=== PATIENT | male | born 1965 | race Two or more races ===

== ENCOUNTER 2025-04-25 18:23 | Emergency (ER) | payer BC, OTHER ==
[~2025-04-25] VITALS: Ht 185.4 cm; Wt 85.3 kg
[2025-04-25 18:28] VITALS: TEMP 98
--- NOTE | 2025-04-25 18:57 | ED.PDOC ---
HPI Comments 60 year old male presents to the ED with a chief complaint of chest pain onset today about 1 hour prior to ED arrival. Patient states he began experiencing chest pain about 1 hour ago, described as LT sided, tightness sensation as well as dizziness, cold hands. Patient checked BP was 200s systolic, came to ED. Denies shortness of breath, fever, chills, cough, congestion, headache, numbness/tingling, weakness, blurred vision. No other symptoms or modifying factors present at this time. Chief Complaint: Chest Pain Time Seen by MD: 18:40 Reviewed Notes: Medications, Allergies Allergies: Coded Allergies: NO KNOWN ALLERGIES (Unverified , 04/25/25) Home Meds Active Scripts Amlodipine Besylate (Amlodipine Besylate) 5 Mg Tab, 1 TAB PO DAILY for 90 Days, #90 TAB 3 Refills Prov:RAUL COLLIER MD 04/25/25 Amlodipine Besylate (Amlodipine Besylate) 5 Mg Tab, 1 TAB PO DAILY for 90 Days, #90 TAB 3 Refills Prov:RAUL COLLIER MD 04/25/25 Information Source: Patient Mode of Arrival: Ambulatory Severity: Moderate Timing: Hours Duration: Since onset Prehospital treatment: None Location: Chest (L) Radiation: No Radiation Quality: Tightness Onset: At Rest Cardiac Risk Factors: None PE Risk Factors: None History of: None Modifying Factors: Nothing Past Medical History PAST MEDICAL HISTORY: Denies Surgical History: Denies all surgeries Family History Family History: Reviewed,noncontributory to illness, No family hx of Cancer, No family hx of DM, No family hx of Heart garcía, No family hx of HTN, No family hx ofKidney garcía, No family hx of Liver garcía, No family hx of Lung garcía, No family hx of Stroke Social History Smoker: Non-Smoker Alcohol: Denies ETOH Use Drugs: Denies Drug Use Lives In: Home Constitutional: denies: chills, diaphoresis, fatigue, fever, malaise, sweats, weakness, others EENTM: denies: blurred vision, double vision, ear bleeding, ear discharge, ear drainage, ear pain, ear ringing, eye pain, eye redness, hearing loss, mouth pain, mouth swelling, nasal discharge, nose bleeding, nose congestion, nose pain, photophobia, tearing, throat pain, throat swelling, voice changes, others Respiratory: denies: cough, hemoptysis, orthopnea, SOB at rest, shortness of breath, SOB with excertion, stridor, wheezing, others Cardiovascular: reports: chest pain; denies: dizzy spells, diaphoresis, Dyspnea on exertion, edema, irregular heart beat, left arm pain, lightheadedness, palpitations, PND, syncope, others Gastrointestinal: denies: abdomen distended, abdominal pain, blood streaked bowels, constipated, diarrhea, dysphagia, difficulty swallowing, hematemesis, melena, nausea, poor appetite, poor fluid intake, rectal bleeding, rectal pain, vomiting, others Genitourinary: denies: burning, dysuria, flank pain, frequency, hematuria, incontinence, penile discharge, penile sore, pain, testicle pain, testicle swelling, urgency, others Neurological: reports: dizziness; denies: fainting, headache, left sided numbness, left sided weakness, numbness, paresthesia, pre-existing deficit, right sided numbness, right sided weakness, seizure, speech problems, tingling, tremors, weakness, others Musculoskeletal: denies: back pain, gout, joint pain, joint swelling, muscle pain, muscle stiffness, neck pain, others Integumetry: denies: bruises, change in color, change in hair/nails, dryness, laceration, lesions, lumps, rash, wounds, others Allergic/Immunocompromised: denies: Difficulty Healing, Frequent Infections, Hives, Itching, others Hematologic/Lymphatic: denies: anemia, blood clots, easy bleeding, easy bruising, swollen glands, others Endocrine: denies: excessive hunger, excessive sweating, excessive thirst, excessive urination, flushing, intolerance to cold, intolerance to heat, unexplained weight gain, unexplained weight loss, others Psychiatric: denies: anxiety, bipolar disorder, depression, hopeless, panic disorder, schizophrenia, sleepless, suicidal, others All Other Systems: Reviewed and Negative Physical Exam General Appearance: Normal HEENT: Normal ENT Inspection, Pharynx Normal, TMs Normal Neck: Full Range of Motion, Non-Tender, Normal, Normal Inspection Respiratory: Chest Non-Tender, Lungs Clear, No Accessory Muscle Use, No Respiratory Distress, Normal Breath Sounds Cardiovascular: No Edema, No JVD, No Murmur, No Gallop, Normal Peripheral Pulses, Regular Rate/Rhythm Breast Exam: Deferred Gastrointestinal: No Organomegaly, Non Tender, No Pulsatile Mass, Normal Bowel Sounds, Soft Genitalia: Deferred Pelvic: Deferred Rectal: Deferred Extremities: No calf tenderness, Normal capillary refill, Normal inspection, Normal range of motion, Non-tender, No pedal edema Musculoskeletal : Apperance: Normal 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 Was a procedure done?: No CP Differential Dx Differential Diagnosis: A-fib, A-Flutter, Electrolyte Disorder, PAC's, Pulmonary Embolus, Ventricular Dysrhythmia, V-Fib, V-Tach, WPW, Other X-Ray, Labs, Meds, VS Vital Signs Date Time Temp Pulse Resp B/P (MAP) Pulse Ox O2 Delivery O2 Flow Rate FiO2 04/25/25 22:10 68 16 100 Room Air* 0 21 04/25/25 22:10 68 18 168/99 (122) 100 04/25/25 20:03 78 18 171/103 (125) 96 04/25/25 20:01 171/103 04/25/25 19:46 70 04/25/25 18:57 80 04/25/25 18:33 80 04/25/25 18:28 98.0 89 20 186/112 95 98.0 Lab Test 04/25/25 19:47 04/25/25 18:49 Range/Units Troponin I High Sensitivity 9 6 </=54 ng/L White Blood Count 4.1 L 4.4-10.8 10^3/uL Red Blood Count 4.47 L 4.5-5.90 10^6/uL Hemoglobin 14.3 13.5-17.5 g/dL Hematocrit 41.6 41.0-53.0 % Mean Corpuscular Volume 93.1 80.0-100.0 fL Mean Corpuscular Hemoglobin 31.9 28.0-32.0 pg Mean Corpuscular Hemoglobin Concent 34.3 32.0-36.0 g/dL Red Cell Distribution Width 12.6 11.8-14.3 % Platelet Count 160 140-450 10^3/uL Mean Platelet Volume 8.6 6.9-10.8 fL Neutrophils (%) (Auto) 48.8 37.0-80.0 % Lymphocytes (%) (Auto) 40.9 10.0-50.0 % Monocytes (%) (Auto) 8.0 0.0-12.0 % Eosinophils (%) (Auto) 1.3 0.0-7.0 % Basophils (%) (Auto) 1.0 0.0-2.0 % Neutrophils # (Auto) 2.0 1.6-8.6 10 ^3/uL Lymphocytes # (Auto) 1.7 0.4-5.4 10 ^3/uL Monocytes # (Auto) 0.3 0-1.3 10 ^3/uL Eosinophils # (Auto) 0.1 0-0.8 10 ^3/uL Basophils # (Auto) 0 0-0.2 10 ^3/uL Nucleated Red Blood Cells 0.1 % Sodium Level 139 136-145 mmol/L Potassium Level 3.8 3.5-5.1 mmol/L Chloride Level 103 98-107 mmol/L Carbon Dioxide Level 29 20-31 mmol/L Anion Gap 7 5-15 Blood Urea Nitrogen 8 L 9-23 mg/dL Creatinine 1.05 0.700-1.30 mg/dL Glomerular Filtration Rate Calc 80 >90 mL/min BUN/Creatinine Ratio 7.6 L 10.0-20.0 Serum Glucose 102 74-106 mg/dL Calcium Level 9.1 8.7-10.4 mg/dL Total Bilirubin 0.5 0.2-1.0 mg/dL Aspartate Amino Transferase (AST) 24 13-40 U/L Alanine Aminotransferase (ALT) 34 7-40 U/L Alkaline Phosphatase 79 46-116 U/L Total Protein 7.0 5.7-8.2 g/dL Albumin 4.4 3.2-4.8 g/dL Current Medications Medications (Trade) Dose Ordered Sig/Nona Route Start Time Stop Time Status Last Admin Hydralazine HCl (Apresoline Tablet) 25 mg ONCE ONCE PO 04/25/25 18:45 04/25/25 18:46 DC 04/25/25 20:01 [facility] [id number] [place] [id number] Ph: [phone] DIAGNOSTIC IMAGING Diagnostic Imaging Report : [id number] Signed PATIENT: JULIA DICKSON ACCT: [id number] UNIT: [id number] : 1965 LOC: ER ROOM / BED: / AGE / SEX: 60 / M ADM STATUS: REG ER SERVICE 42 ORDERING PHYSICIAN: RAUL COLLIER MD PROCEDURE(s): CXRP - CHEST PORTABLE REASON: chest pain ORDER NUMBER(s): [id number], ACCESSION NUMBER(s): [id number] CHEST RADIOGRAPH Indication: chest pain Technique: Single frontal view of the chest was obtained Comparison: None FINDINGS: Lines and Tubes: None Lungs: No focal consolidation. Pleura: No effusion. No pneumothorax. Cardiomediastinal contours: Unremarkable Bones: No acute osseous abnormality. IMPRESSION: 1. No acute cardiopulmonary disease. ATED BY: HARLEEN SEAY Jr., DO DICTATED DATE/TIME: 04/25/251922 SIGNED BY: HARLEEN SEAY Jr., SIGNED DATE/TIME: 04/25/251922 CC: Time of 1ST Reevaluation: 19:10 Reevaluation 1ST: Unchanged Patient Education/Counseling: Diagnosis, Treatment, Prognosis Family Education/Counseling: No Family Present SEPSIS Sepsis Screen Date sepsis recognized/suspect: Apr 25, 2025 Time Sepsis recognized/suspect: 1828 Recent Procedure: No On Antibiotic Therapy: No Respiratory Rate >20: No Heart Rate >90: No Temp<36 C (96.8 F) or >38.3 C: No SBP <90 or MAP <65 mmHG: No New Acute Mental Status Change: No Is the patient on CPAP, BIPAP,: No Physician Orders Chest Portable (04/25/25 18:43) Electrocardigram (04/25/25 21:57) Vital Signs Date Time Temp Pulse Resp B/P (MAP) Pulse Ox O2 Delivery O2 Flow Rate FiO2 04/25/25 22:10 68 16 100 Room Air* 0 21 04/25/25 22:10 68 18 168/99 (122) 100 04/25/25 20:03 78 18 171/103 (125) 96 04/25/25 20:01 171/103 04/25/25 19:46 70 04/25/25 18:57 80 04/25/25 18:33 80 04/25/25 18:28 98.0 89 20 186/112 95 98.0 Laboratory Tests Test 04/25/25 18:49 White Blood Count 4.1 10^3/uL (4.4-10.8) L Medications Medications Dose Ordered Sig/Nona Route Start Time Stop Time Status Last Admin Dose Admin Hydralazine HCl 25 mg ONCE ONCE PO 04/25/25 18:45 04/25/25 18:46 DC 04/25/25 20:01 Departure 1 Departure Time of Disposition: 21:00 Impression: Primary Impression: Chest tightness Additional Impression: Hypertensive urgency Disposition: 01 HOME / SELF CARE / HOMELESS Condition: Stable e-Prescriptions Amlodipine Besylate (Amlodipine Besylate) 5 Mg Tab 1 TAB PO DAILY for 90 Days, #90 TAB 3 Refills Prov: RAUL COLLIER MD 04/25/25 Amlodipine Besylate (Amlodipine Besylate) 5 Mg Tab 1 TAB PO DAILY for 90 Days, #90 TAB 3 Refills Prov: RAUL COLLIER MD 04/25/25 Discharged With: Self Critical Care Note Critical Care Time?: No Stability Stability form required: No Heart Score Heart Score: Heart Score Response (Comments) Value History N/A 0 EKG N/A 0 Age N/A 0 Risk Factors N/A 0 Troponin N/A 0 Total 0 I personally scribed for RAUL COLLIER MD ([email or web address]) on 04/25/25 at 18:57. Electronically submitted by Cori Nicholson ([email or web address]). I personally scribed for RAUL COLLIER MD ([email or web address]) on 04/25/25 at 19:36. Electronically submitted by Cori Nicholson ([email or web address]). RAUL COLLIER MD Apr 25, 2025 18:57
--- NOTE | 2025-04-25 18:58 | ECG ---
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
[2025-04-25 19:05] LABS: Hematocrit 41.6 % (41.0-53.0); Hemoglobin 14.3 g/dL (13.5-17.5); Mean Corpuscular Hemoglobin 31.9 pg (28.0-32.0); Mean Corpuscular Volume 93.1 fL (80.0-100.0); Nucleated Red Blood Cells % 0.1 %
--- NOTE | 2025-04-25 19:25 | DVH ---
CHEST RADIOGRAPH Indication: chest pain Technique: Single frontal view of the chest was obtained Comparison: None FINDINGS: Lines and Tubes: None Lungs: No focal consolidation. Pleura: No effusion. No pneumothorax. Cardiomediastinal contours: Unremarkable Bones: No acute osseous abnormality. IMPRESSION: 1. No acute cardiopulmonary disease.
[2025-04-25 19:28] LABS: Alanine Aminotransferase 34 U/L (7-40); Albumin 4.4 g/dL (3.2-4.8); Alkaline Phosphatase 79 U/L (46-116); Anion Gap 7 (5-15); BUN/Creatinine Ratio 7.6 (10.0-20.0); Bilirubin, Total 0.5 mg/dL (0.2-1.0); Calcium 9.1 mg/dL (8.7-10.4); Carbon Dioxide 29 mmol/L (20-31); Chloride 103 mmol/L (98-107); Glucose 102 mg/dL (74-106); Potassium 3.8 mmol/L (3.5-5.1); Sodium 139 mmol/L (136-145); Total Protein 7.0 g/dL (5.7-8.2)
[2025-04-25 19:29] LABS: Blood Urea Nitrogen 8 mg/dL (9-23)
[2025-04-25] MEDS ORDERED: AMLO1TAB22 PO (21:25)
--- NOTE | 2025-04-25 21:28 | ECG ---
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
[2025-04-25 22:10] VITALS: BP 168/99; PULSE 68; RESP 16; O2SAT 100
== END 2025-04-25 22:16 | disposition home or self-care (01) ==
LOC: ER 18:23
DX: R07.89 Other chest pain (principal); I16.0 Hypertensive urgency; Z79.899 Other long term (current) drug therapy
CPT/HCPCS: 36415; 71045; 80053; 84484; 85025; 93005